=== PATIENT | female | born 1965 | race Caucasian/White ===

== ENCOUNTER 2019-03-23 21:21 | Emergency (ER) | payer OTHER ==
[~2019-03-23] VITALS: Ht 157.5 cm; Wt 72.7 kg
[2019-03-23 21:26] VITALS: BP 161/90
[2019-03-23] MEDS ORDERED: ondansetron 4mg rapidly disintigrating tab PO ONE (22:40)
[2019-03-23] MEDS ORDERED: ONDA4TAB6 PO (22:40)
[2019-03-23] MEDS ORDERED: HYDROcodone/acetaminophen 5mg/325mg tablet PO ONE (22:40)
[2019-03-23] MEDS ORDERED: HYDR-4383 PO (22:40)
== END 2019-03-23 22:59 | disposition home or self-care (01) ==
LOC: ER 21:21
DX: M25.531 Pain in right wrist (principal); M25.511 Pain in right shoulder; Z79.899 Other long term (current) drug therapy
CPT/HCPCS: 29125; 73060; 99284

== ENCOUNTER 2021-02-19 02:44 | Emergency (ER) | payer SELFPAY ==
[~2021-02-19] VITALS: Ht 157.5 cm; Wt 72.7 kg
[~2021-02-19 02:44] MED LIST: HYDR-4383 PO; ONDA4TAB6 PO
[2021-02-19] MEDS ORDERED: morphine 4 MG/ML inj SYRINge IM ONE (05:20)
[2021-02-19] MEDS ORDERED: ketorolac trometh. 30mg/ml inj. IM ONE (05:20)
--- NOTE | 2021-02-19 05:52 | NUR ---
per dr turner, check in about 30 min if pt able to straighten leg further after pain medications have time to work. if pt able to straighten out more, place pt in knee immobilizer with crutches. if pt unable to straighten out for immobilizer place several karlie wraps around knee and d/c with crutches.
--- NOTE | 2021-02-19 05:53 | NUR ---
will relay previous note to day shift rn
[2021-02-19 06:18] VITALS: BP 141/72
[2021-02-19] MEDS ORDERED: diphenhydrAMINE 25mg capsule PO ONE (07:30)
[2021-02-19] MEDS ORDERED: quetiapine 100mg tablet PO SCH (08:00)
== END 2021-02-19 08:12 | disposition home or self-care (01) ==
LOC: ER 02:45
DX: M25.561 Pain in right knee (principal); G89.29 Other chronic pain; F17.200 Nicotine dependence, unspecified, uncomplicated; Z98.890 Other specified postprocedural states
CPT/HCPCS: 73560; 96372; 99284; J1885; J2270; Q0163